=== PATIENT | male | born 1975 | race Caucasian/White ===

== ENCOUNTER 2020-10-14 06:07 | Inpatient (IN) ==
--- NOTE | 2020-09-28 09:00 | PAT Medication Instructions ---
Medication Instructions Date of Service September 28, 2020 Home Medications fluvoxamine 300 mg PO HS lisinopril 10 mg PO HS lithium carbonate 300 mg PO HS metformin 500 mg PO BID quetiapine [Seroquel] 300 mg PO HS rosuvastatin 1 dose PO HS zolpidem 5 mg PO HS DO NOT take the morning of surgery metformin 500 mg PO BID Take evening before surgery fluvoxamine 300 mg PO HS lisinopril 10 mg PO HS lithium carbonate 300 mg PO HS metformin 500 mg PO BID quetiapine [Seroquel] 300 mg PO HS rosuvastatin 1 dose PO HS zolpidem 5 mg PO HS Other Notes If you have any questions please call us at [phone] or [phone] or [phone] or [phone]
--- NOTE | 2020-09-29 08:45 | Anesthesiology Consultation ---
Date of Service September 29, 2020 Assessment & Plan (1) Encounter for pre-operative examination: - Per assessment on 09/28: Travel screen negative. No known COVID-19 positive contacts or current COVID-19 related symptoms. Patient's cousin did have a po sitive coworker 2 weeks ago- cousin had COVID testing due to contact and result came back negative. Surgeon arranging preop COVID testing. Awaiting results. - Check BSG AM DOS Chart Review Chart Review: Acceptable Risk for Surgery and Patient seen in Pre Admission Testing Teaching & Discussion Pre-Anesthesia Teaching/Discussion Notes: Instructed NPO after midnight before surgery,except medications with 15 cc of water. Medication instructions provided according to the PAT guidelines. History Surgery Operation Date: 10/14/20 12:55 Proposed Procedures p C6-C7 Anterior Cervical Discectomy and Fusion, C5 Corpectomy, Spinal Cord Monitoring - Jose J Leiva DO Height/Weight Height: 5 ft 10 in Weight: 116.7 kg Allergies Allergy/AdvReac Type Severity Reaction Status Date / Time divalproex sodium AdvReac rage Verified 09/26/20 12:20 [From Depakote] escitalopram [From Lexapro] AdvReac suicidal Verified 09/26/20 12:20 ideation ibuprofen AdvReac GI Bleed Verified 09/26/20 12:20 Medications Home Medications Medication Instructions Recorded Confirmed Last Taken fluvoxamine 300 mg PO HS 09/26/20 09/26/20 Unknown lisinopril 10 mg PO HS 09/26/20 09/26/20 Unknown lithium carbonate 300 mg PO HS 09/26/20 09/26/20 Unknown metformin 500 mg PO BID 09/26/20 09/26/20 Unknown quetiapine [Seroquel] 300 mg PO HS 09/26/20 09/26/20 Unknown rosuvastatin 1 dose PO HS 09/26/20 09/26/20 Unknown zolpidem 5 mg PO HS 09/26/20 09/26/20 Unknown Past Medical History Medical History Curvature of spine DM type 2 (diabetes mellitus, type 2) NIDDM History of gout HTN (hypertension) Hyperlipidemia OCD (obsessive compulsive disorder) Osteoarthritis Psychotic disorder with h/o delusions, hallucinations; states "well controlled" at present time PTSD (post-traumatic stress disorder) Sleep apnea does not tolerate CPAP Spinal stenosis Exercise / Class Metabolic Activity II 4-5 Yardwork/Stairs/Walk up hill Past Family History Family History Mother History of anesthesia reaction severe hypotension Past Surgical History Surgical History History of arthroscopy of right knee x3 History of foot surgery right History of repair of rotator cuff left History of vasectomy Past Anesthesia History Other (awareness with foot surgery) Mother: severe hypotension (baseline hypotension) History of PONV No Hx of PONV and No Hx of Motion Sickness STOP BANG Total 5 Social History Smoking Status: Former smoker Do You Dip or Chew Tobacco: No Smoking End Date: Quit 20 years ago Hx Alcohol Use: Yes alcohol intake frequency: holidays/special occasions only Hx Substance Use: No substance use type: does not use Review of Systems Patient denies chest pain, shortness of breath, dyspnea on exertion, joint pain, reflux, cough, wheezing, palpitations. Physical Exam Vital Signs VITALS BP 105/69 P 101 TEMP 98.4 SP02 96%RA RESP 16 PHYSICAL Full neck and c-spine range of motion. Full TMJ range of motion. TMD 3.5 finger breaths Mallampati Score 3 Dentition: poor dentition, several chipped/cracked (no new issues) Lungs: clear throughout to auscultation Cardiac: regular rate and rhythm, no murmurs noted Spine: normal Carotid arteries: negative bruit Extremities: no edema + thin joseph- advised to trim (patient will leave at anesthesiologist discretion DOS if further trimming/shaving needed) Testing Laboratory Results 09/29/20 09:10 09/29/20 09:10 PT 10.2 Seconds (9.0-12.0) 09/29/20 09:10 INR 1.0 (0.9-1.1) 09/29/20 09:10 APTT 29.1 Seconds (21.0-31.0) 09/29/20 09:10 Urine Color Yellow 09/29/20 09:10 Urine Appearance Clear (Clear) 09/29/20 09:10 Urine pH 5.0 (4.5-7.5) 09/29/20 09:10 Ur Specific [place] 1.022 (1.000-1.030) 09/29/20 09:10 Urine Protein Negative (Negative) 09/29/20 09:10 Urine Glucose (UA) Negative (Negative) 09/29/20 09:10 Urine Ketones Negative (Negative) 09/29/20 09:10 Urine Nitrite Negative (Negative) 09/29/20 09:10 Ur Leukocyte Esterase Negative (Negative) 09/29/20 09:10 Blood Type O Positive 09/29/20 09:10 Antibody Screen NEGATIVE 09/29/20 09:10 Electrocardiogram Date: 09/29/20 Findings: + NSR @ (93) Chest X-Ray Date: 09/29/20 FINDINGS: Lung volumes are normal. Lungs are clear. There is no pneumothorax or pleural effusion. Cardiac size is normal. Mediastinal contours are normal. There is no evidence for pulmonary edema. IMPRESSION: No acute cardiopulmonary findings.
[2020-09-29 10:42] LABS: Appearance Urine Clear (Clear); Basophils % (auto) 1.5 %; Bilirubin Urine Negative (Negative); Blood Urine Negative (Negative); Color Urine Yellow; Eosinophils # (auto) 0.35 K/uL (0-0.5); Eosinophils % (auto) 5.1 %; Glucose Urine UA Negative (Negative); Hematocrit (blood only) 40.1 % (42-52); Hemoglobin 12.9 g/dL (14.0-18.0); Immature Granulocytes # (auto) 0.02 K/uL (0.00-0.02); Immature Granulocytes % (auto) 0.3 %; Ketones Urine Negative (Negative); Leukocyte Esterase Urine Negative (Negative); Lymphocytes # (auto) 2.82 K/uL (1.2-3.4); Lymphocytes % (auto) 40.9 %; Mean Corpuscular Hgb Conc 32.2 g/dL (32-36); Mean Corpuscular Volume 84.1 fL (80-100); Mean Platelet Volume 11.8 fL (7.4-10.4); Monocytes # (auto) 0.49 K/uL (0.11-0.59); Monocytes % (auto) 7.1 %; Neutrophils # (auto) 3.11 K/uL (1.4-6.5); Neutrophils % (auto) 45.1 %; Nitrite Urine Negative (Negative); Platelet Count 229 K/uL (130-400); Protein Urine Negative (Negative); Red Blood Count 4.77 M/uL (4.7-6.1); Specific Gravity Urine 1.022 (1.000-1.030); Urobilinogen Urine Negative (Negative); White Blood Count 6.89 K/uL (4.8-10.8)
--- NOTE | 2020-09-29 10:47 | XRay Report ---
XR chest Pre-admission PA/Lat CLINICAL HISTORY: Preoperative evaluation. COMPARISON STUDY: No previous studies for comparison. FINDINGS: Lung volumes are normal. Lungs are clear. There is no pneumothorax or pleural effusion. Car diac size is normal. Mediastinal contours are normal. There is no evidence for pulmonary edema. IMPRESSION: No acute cardiopulmonary findings. ACT 112: Negative or not required by law. Electronically signed by: Terrell Goldsmith M.D. 09/29/2020 10:45 AM
[2020-09-29 10:52] LABS: BUN Creatinine Ratio 13.2 (10-20); Creatinine Clr Calc Pharmacy 99.3 ml/min; Est GFR (African American) 84.4; Est GFR (Non-African American) 72.8; Potassium 4.2 mmol/L (3.5-5.1)
[2020-09-29 10:53] LABS: Partial Thromboplastin Time 29.1 Seconds (21.0-31.0); Prothrombin Time 10.2 Seconds (9.0-12.0)
--- NOTE | 2020-09-29 16:46 | Electrocardiogram Report ---
Test Reason : Blood Pressure : / mmHG Vent. Rate : 093 BPM Atrial Rate : 093 BPM P-R Int : 168 ms QRS Dur : 094 ms QT Int : 360 ms P-R-T Axes : 055 063 061 degrees QTc Int : 447 ms Normal sinus rhythm Normal ECG No previous ECGs available Confirmed by Yuri Cruz ([id number]) on 09/29/2020 4:46:06 PM Referred By: Jose J Leiva Confirmed By:Jarrett Cruz
[~2020-10-14 06:07] MED LIST: ACETAMINOPHEN 500 MG TAB PO SCH; CeleBREX 200 MG CAP PO SCH; GABAPENTIN 900 MG DOSE PO SCH; LR 15ML/HR IV SCH; ceFAZolin 2000MG 2,000 MG/15 ML SYR IV SCH
[2020-10-14] MEDS ORDERED: REMIFENTANIL HCL 1 MG VIAL ONE (06:35)
[2020-10-14] MEDS ORDERED: PROPOFOL IV EMULSION 10 MG/ML 100 ML VIAL IV ONE (06:36)
[2020-10-14] MEDS ORDERED: HYDROmorphone INJ 2 MG/ML SYR/VIAL ONE (07:05)
[2020-10-14] MEDS ORDERED: MIDAZOLAM HCL 1 MG/ML 2ML VIAL ONE (07:05)
[2020-10-14] MEDS ORDERED: PROPOFOL IV EMULSION 10 MG/ML 20 ML VIAL IV ONE (07:10)
[2020-10-14] MEDS ORDERED: ONDANSETRON INJ 2 MG/ML 2 ML VIAL ONE (07:10)
[2020-10-14] MEDS ORDERED: SUCCINYLCHOLINE CHLORIDE 20 MG/ML 10 ML VIAL IV ONE (07:10)
[2020-10-14] MEDS ORDERED: LIDOCAINE HCL 2% 2 ML VIAL/AMP(20MG/ML) INFIL ONE (07:10)
[2020-10-14] MEDS ORDERED: DEXAMETHASONE SOD INJ 4 MG/ML VIAL ONE (07:10)
[2020-10-14] MEDS ORDERED: BACITRACIN INJ 50,000 UNIT VIAL ONE (07:11)
--- NOTE | 2020-10-14 07:21 | History & Physical Bridge Note ---
Date of Service October 14, 2020 History & Physical Bridge Note I have examined the patient, reviewed the History & Physical and in the interval since the performance of the History & Physical I have noted the following changes of clinical significance: no changes noted
--- NOTE | 2020-10-14 07:21 | History & Physical Report ---
Date of Service October 14, 2020 Assessment & Plan (1) Myelopathy concurrent with and due to spinal stenosis of cervical region: Admission and Anticipated Discharge Date Admission Date: C6-C7 anterior cervical discectomy and fusion, C5 corpectomy History of Present Illness Chief Complaint: Neck and arm pain Primary Care Provider: Yamini Mcarthur This is a 45-year-old milligrams with chronic persistent neck and arm symptoms after failing course of nonoperative care is here for surgical invention. Allergies Allergy/AdvReac Type Severity Reaction Status Date / Time divalproex sodium AdvReac rage Verified 10/14/20 06:22 [From Depakote] escitalopram [From Lexapro] AdvReac suicidal Verified 10/14/20 06:22 ideation ibuprofen AdvReac GI Bleed Verified 10/14/20 06:22 Home Medications Medication Instructions Recorded Confirmed Type fluvoxamine 300 mg PO HS 09/26/20 09/26/20 History lisinopril 10 mg PO HS 09/26/20 10/14/20 History lithium carbonate 300 mg PO HS 09/26/20 09/26/20 History metformin 500 mg PO BID 09/26/20 10/14/20 History quetiapine [Seroquel] 300 mg PO HS 09/26/20 09/26/20 History rosuvastatin 1 dose PO HS 09/26/20 09/26/20 History zolpidem 5 mg PO HS 09/26/20 09/26/20 History Past Med/Surg History Medical History Curvature of spine DM type 2 (diabetes mellitus, type 2) NIDDM History of gout HTN (hypertension) Hyperlipidemia OCD (obsessive compulsive disorder) Osteoarthritis Psychotic disorder with h/o delusions, hallucinations; states "well controlled" at present time PTSD (post-traumatic stress disorder) Sleep apnea does not tolerate CPAP Spinal stenosis Surgical History History of arthroscopy of right knee x3 History of foot surgery right History of repair of rotator cuff left History of vasectomy Family History Mother History of anesthesia reaction severe hypotension Social History Smoking Status: Former smoker Smoking End Date: Quit 20 years ago; Second Hand Exposure: Yes (as a child); Do You Dip or Chew Tobacco: No; Tobacco Cessation Education Requested by Patient: No Hx Alcohol Use: Yes Hx Substance Use: No Preferred Language: Maltese Communication Ability: Effective Trades Helper Required: No Beliefs That Will Affect Care: None Current Living Situation: Family Current Living Situation Comment: lives with mom and son Feels Safe at Home: Yes Safety Concerns: Feels Safe At This Time Assistive Devices: None Physical Exam Physical Exam: Patient's alert and oriented Heart regular rate and rhythm Lungs clear to auscultation Results & Data ([facility]) Vital Signs (Past 12 Hours) Vital Signs Temp Pulse Resp BP Pulse Ox 10/14/20 06:37 37.4 C 93 H 16 122/76 95
[2020-10-14] MEDS ORDERED: ePHEDrine sulfate 50 MG/ML AMP IV PRN (07:25)
[2020-10-14] MEDS ORDERED: ONDANSETRON INJ 2 MG/ML 2 ML VIAL IV PRN ×2 (07:25→12:07)
[2020-10-14] MEDS ORDERED: HYDROmorphone INJ 1 MG/ML SYRINGE IV PRN ×2 (07:25→12:07)
[2020-10-14] MEDS ORDERED: ATROPINE SULFATE 0.1 MG/ML 10ML SYR IV PRN (07:25)
[2020-10-14] MEDS ORDERED: PHENYLEPHRINE 100MCG/ML 5ML SYR ONE (08:08)
[2020-10-14] MEDS ORDERED: ROCURONIUM BROMIDE 10 MG/ML 5 ML VIAL IV ONE (08:08)
[2020-10-14] MEDS ORDERED: ePHEDrine sulfate 50 MG/ML SYR ONE (08:21)
[2020-10-14] MEDS ORDERED: NEOSTIGMINE METHYLSULFATE 1 MG/ML 10ML VIAL ONE (08:50)
[2020-10-14] MEDS ORDERED: GLYCOPYRROLATE 0.2 MG/ML VIAL ONE (08:50)
[2020-10-14] MEDS ORDERED: FLOSEAL HEMOSTATIC MATRIX 10ML TOP ONE (09:42)
--- NOTE | 2020-10-14 09:58 | Operative Report ---
Post Operative Report Pre & Post Diagnosis Operation Date: 10/14/20 07:45 Pre-Op Diagnosis: Spinal Stenosis, Cervical Region Post-Op Diagnosis: Spinal Stenosis, Cervical Region I identified the patient and participated in the time-out.: No Procedure Operation Date: 10/14/20 07:45 Actual Procedures #1 anterior cervical corpectomy with bilateral foraminotomies C5. #2 anterior cervical discectomy with bilateral foraminotomies C6-C7. #3 anterior cervical arthrodesis C4-C6 and C6-C7. #4 placement of 25 mm peek cage at C4-C6 and 8 mm at C6-C7. #5 placement locally harvested morselized autograft combined with DBM and interbody cages. #6 placement of lares plate and screws across C4-C7. Surgeon Jose J Leiva, DO Medical Affairs Leader Shanda Hu Estimated Blood Loss 10 Findings See Below The patient is 5 foot 10 inches tall weighing over 113 kg with a BMI in excess of 36. The patient's body habitus did contribute to his significant technical difficulty requiring our deepest retractors in order to expose and perform his procedure. This at least 50% increase to the operative time. Specimens None Indications This is a 45-year-old male presents with above-mentioned diagnosis after failing course of nonoperative care is here for the above-mentioned procedure. Description of Procedure Patient met with identified informed consent obtained. Patient was then taken to the operative suite underwent an patient placed in spine position just table head [place] head ordered. All bony prominences well-padded eyes inspected to ensure no external pressure placed upon the. This point the anterior cervical spine was prepped and draped in a sterile fashion. With the assistance of fluoroscopy identified the C5-C6 level and a transverse incision was placed along the right anterior aspect of the cervical spine overlying this region. Sharp dissection with the assistance of bipolar electrocautery was performed down to expose the anterior cervical spine from C4-C7. Self-retaining retractors placed. Then performed a complete discectomy of C4-5 out to the uncovertebral joints bilaterally followed by C5-C6. [place] distraction pins were then placed in C4 and C6 to distract across the C5 vertebral body. A complete corpectomy was then performed including removal of all posterior annular fibers longitudinal ligament bilateral foraminotomies. Endplates were then burred to subcortical being bone and a 25 mm peek cage filled with local autograft and DBM tapped in position. I then proceeded to see 6 C7. Again complete discectomy performed out to the uncovertebral's bilaterally. [place] distraction pins again utilized. Removed all posterior annular fibers longitudinal ligament bilateral foraminotomies performed. Endplates then burred to subcortically bone and a 8 mm peek cage filled with local autograft and DBM tapped in position. Distracting apparatus was removed all anterior osteophytes produced with cortical surface and a 5 complete screws applied with the assistance of fluoroscopy. Incision was then copiously irrigated explored to ensure no damage to surrounding structures remaining bleeding. 10 round GRECIA drain inserted. The incision was then closed with 2 Vicryl in a fashion of 4 Monocryl for final skin closure. Steri-Strip sterile dressings placed. Patient will continue PACU stable condition. Please note spinal cord monitoring was utilized that the procedure no changes noted. Lastly Franck record was present throughout the entire surgery involved the patient positioning complex portions of the surgery and final skin closure. I attest to the content of the Intraoperative Record and any orders documented therein. Any exceptions are noted below.
[2020-10-14] MEDS: fentaNYL citrate 100 MCG/2 ML VIAL IV PRN ×3 (10:22→10:32)
--- NOTE | 2020-10-14 10:35 | Fluoroscopy Report ---
FL cervical 2-3V CLINICAL HISTORY: ACDF C6-C7 AND CORPECTOMY C5 COMPARISON STUDY: None. FLUOROSCOPY TIME: 11 seconds. FINDINGS: 3 fluoroscopic spot images of the cervical spine demonstrate anterior cervical discectomy a nd fusion from C4 through C7 with C5 corpectomy and bone graft. IMPRESSION: Fluoroscopy provided for C4-C7 ACDF. ACT 112: Negative or not required by law. Electronically signed by: Abdiel Rocha M.D. 10/14/2020 10:33 AM
[2020-10-14] MEDS ORDERED: FAMOTIDINE 20 MG TAB PO PRN (12:07)
[2020-10-14] MEDS ORDERED: LORazepam 0.5 MG TAB PO PRN (12:07)
[2020-10-14] MEDS ORDERED: ACETAMINOPHEN 1,000 MG/100 ML VIAL IV PRN (12:07)
[2020-10-14] MEDS ORDERED: DO NOT ADMINISTER PNEUMOCOCCAL VACCINE PRN (12:07)
[2020-10-14] MEDS ORDERED: PROMETHAZINE HCL 12.5 MG in SODIUM CHLORIDE 0.9% 50 ML IV PRN (12:07)
[2020-10-14] MEDS ORDERED: RACEPINEPHRINE 2.25% NEBU SOLN 0.5 ML VIAL INH PRN (12:07)
[2020-10-14] MEDS ORDERED: diphenhydrAMINE Capsule 25 MG CAP PO PRN (12:07)
[2020-10-14] MEDS ORDERED: ALUMINUM/MAGNESIUM SUSP 30 ML UDC PO PRN (12:07)
[2020-10-14] MEDS ORDERED: traMADol HCL 50 MG TABLET PO PRN (12:07)
[2020-10-14] MEDS ORDERED: DO NOT ADMINISTER FLU VACCINE PRN (12:07)
[2020-10-14] MEDS ORDERED: hydrOXYzine HCl 25 MG TAB PO PRN (12:07)
[2020-10-14] MEDS ORDERED: HYDROmorphone INJ 0.5 MG/0.5 ML SYR IV PRN (12:07)
[2020-10-14] MEDS ORDERED: NALOXONE HCL 0.4 MG/1 ML VIAL/CARP IV PRN (12:07)
[2020-10-14] MEDS ORDERED: DEXAMETHASONE SOD PHOSPHATE 8 MG in SYRINGE 0 ML IV PRN (12:07)
[2020-10-14] MEDS ORDERED: SOD PHOSPHATE/SOD BIPHOSPHATE ENEMA 132 ML BTL PR PRN (12:07)
[2020-10-14] MEDS ORDERED: METOCLOPRAMIDE HCL INJ 5 MG/ML 2 ML VIAL IV PRN (12:07)
[2020-10-14] MEDS ORDERED: ONDANSETRON 4 MG OD TAB PO PRN (12:07)
[2020-10-14] MEDS ORDERED: LORazepam 0.5 MG/1 ML VIAL IV PRN (12:07)
[2020-10-14] MEDS ORDERED: ACETAMINOPHEN 500 MG TAB PO PRN (12:07)
[2020-10-14] MEDS ORDERED: MAGNESIUM HYDROXIDE SUSP 30 ML UDC PO PRN (12:07)
[2020-10-14] MEDS ORDERED: PHARMACY GLYCEMIC MGMT CONSULT PRN (12:15)
[2020-10-14] MEDS ORDERED: GLUCAGON FOR INJ 1 MG VIAL IM PRN (12:30)
[2020-10-14] MEDS ORDERED: GLUCOSE 40% GEL 15 GM TUBE PO PRN (12:30)
[2020-10-14] MEDS ORDERED: DEXTROSE 50% 50 ML SYRINGE IV PRN (12:30)
[2020-10-14] MEDS ORDERED: NovoLIN-N (NPH) PER UNIT CHARGE SQ ONE (12:30)
[2020-10-14] MEDS ORDERED: GLUCOSE 10 TABS/TUBE PO PRN (12:30)
[2020-10-14] MEDS ORDERED: CARBOHYDRATES FOR HYPOGLYCEMIA PO PRN (12:30)
[2020-10-14] MEDS: SODIUM CHLORIDE 0.9% 1000ML 1,000 ML IV SCH ×2 (13:04→19:50)
[2020-10-14] MEDS: INSULIN ASPART 100 UNITS/ML 3 ML PEN SC SCH ×3 (13:07→21:13)
--- NOTE | 2020-10-14 13:14 | Pharmacy Report ---
Glycemic Control Consultation - Date of Service October 14, 2020 - Scope Scope: Glycemic Pharmacist consulted for glycemic control and to write orders per [facility] inpatient glycemic control protocol. - Objective Weight: 113.7 kg Accuchecks BSG (last 24hrs): 10/14/20 10/14/20 10/14/20 06:24 10:20 12:17 POC Glucose 113 H 127 H 142 H - Recent Pertinent Medications Outpatient Anti-diabetic Regimen: * metformin 1 gm PO BID Risk Factors for Insulin Resistance: * Steroids: dexamethasone 8 mg IV x 1 intraop * Recent Surgery: POD 0 for spinal surgery * Diet: clear liquid diet - Assessment & Plan Assessment & Plan: ASSESSMENT: * Mr Qeusada is a 45 y/o M with presents with T2DM on one oral medication for spinal surgery. Patient received dexamethasone 8 mg IV intraop. * Give NPH 35 units (0.4 units/kg of adjusted body weight) x 1 for steroid hyperglycemia. * Start weight-based stress of 3 (adjusted body weight) for Novolog. Overnight checks added. HbA1C ordered. * Pt is maintained on oral antidiabetic agents as an outpatient * Oral agents are not recommended for inpatient use d/t drug interactions, changing PO intake, and difficulty titrating for acute hyper/hypoglycemia. ADA recommends re-initiating outpatient oral agents 1-2 days prior to discharge if/when appropriate if they were held on admission. * Hold metformin for now. PLAN FOR INPATIENT GLYCEMIC CONTROL: * Holding outpatient oral diabetes medications * Basal insulin * 35 units SQ x 1 * Bolus insulin * NovoLog per scale ACHS or Q6hrs while NPO * Goal Range: Low 110 mg/dL - High 140 mg/dL * Correction Factor: 20 mg/dL/unit * Nutritional / Prandial insulin per carb ratio of 1 unit per 6 grams CHO consumed * Please note that the plan above was derived based on current level of insulin resistance and hospital stress. These recommendations are appropriate for inpatient admission only. Plan of care upon discharge will need to be reassessed to avoid potential outpatient hypo/hyperglycemia. Thank you.
--- NOTE | 2020-10-14 15:34 | Anesthesiology Progress Note ---
Date of Service October 14, 2020 Anesthesia Post Procedure Vital Signs Vital Signs: Temp Pulse Pulse Pulse Resp BP Pulse Ox 10/14/20 14:52 36.5 C 101 H 16 111/71 98 10/14/20 14:00 36.6 C 101 H 16 102/69 95 10/14/20 13:44 115 H 16 98 10/14/20 12:55 36.8 C 104 H 14 121/73 98 10/14/20 12:25 36.9 C 101 H 16 126/88 96 10/14/20 11:55 36.8 C 95 H 14 111/66 95 10/14/20 11:40 103 H 12 113/69 95 10/14/20 11:25 99 H 13 117/78 98 10/14/20 11:15 36.6 C 104 H 13 109/73 97 10/14/20 11:05 105 H 15 116/75 97 10/14/20 10:55 99 H 19 123/75 96 10/14/20 10:45 97 H 17 112/65 98 10/14/20 10:35 95 H 21 136/82 99 10/14/20 10:25 93 H 14 125/83 99 10/14/20 10:17 36 C L 94 H 16 125/94 99 10/14/20 06:37 37.4 C 93 H 16 122/76 95 Pain Intensity Neck: Pain Intensity: 3 Transfer of Care Handoff Completed per policy Notes Mental Status: alert / awake / arousable and participated in evaluation Patient Amnestic to Procedure: Yes Nausea / Vomiting: adequately controlled Pain: adequately controlled Airway Patency, RR, SpO2: stable & adequate BP & HR: stable & adequate Hydration State: stable & adequate Anesthetic Complications: no major complications apparent and Pt Satisfied with anesthetic care
[2020-10-14] MEDS: ceFAZolin 2000MG 2,000 MG/15 ML SYR IV SCH ×2 (16:58→23:56)
[2020-10-14] MEDS ORDERED: ROSUVASTATIN CALCIUM 5 MG TAB PO SCH (21:00)
[2020-10-14] MEDS ORDERED: LITHIUM CARBONATE 300 MG TAB PO SCH (21:00)
[2020-10-14] MEDS ORDERED: lisinopril 10 MG TAB PO SCH (21:00)
[2020-10-14] MEDS ORDERED: fluvoxaMINE MALEATE 50 MG TAB PO SCH (21:00)
[2020-10-14] MEDS ORDERED: QUEtiapine FUMARATE 300 MG TABLET PO SCH (21:00)
[2020-10-14] MEDS ORDERED: DOCUSATE SODIUM/SENNA 50/8.6MG TAB PO SCH (21:00)
[2020-10-14] MEDS ORDERED: ZOLPIDEM TARTRATE 5 MG TAB PO SCH (21:00)
[2020-10-14] MEDS: oxyCODONE HCL IR 5 MG TAB (IMMEDIATE RELEASE) PO PRN (22:08)
[2020-10-15] MEDS: SODIUM CHLORIDE 0.9% 1000ML 1,000 ML IV SCH (02:35)
[2020-10-15] MEDS: INSULIN ASPART 100 UNITS/ML 3 ML PEN SC SCH ×3 (04:25→08:35)
[2020-10-15] MEDS ORDERED: NovoLIN-N (NPH) PER UNIT CHARGE SQ ONE ×2 (08:00→10:00)
--- NOTE | 2020-10-15 09:12 | Pharmacy Report ---
Glycemic Control Progress Note - Date of Service October 15, 2020 - Scope Glycemic Pharmacist consulted for glycemic control to write orders per [facility] inpatient glycemic control protocol. - Objective Accuchecks BSG(last 24 hours):: 10/14/20 10/14/20 10/14/20 06:24 10:20 12:17 POC Glucose 113 H 127 H 142 H 10/14/20 10/14/20 10/14/20 17:09 20:30 23:52 POC Glucose 149 H 126 H 107 H 10/15/20 10/15/20 04:22 08:13 POC Glucose 113 H 107 H - Recent Pertinent Medications The patient is currently receiving: * Basal insulin: NPH 35 units SQ x 1 * Correctional Insulin: Novolog Correction per scale ACHS Goal Range: Low 110 mg/dL - High 140 mg/dL Correction Factor: 20 mg/dL/unit * Prandial insulin: Per carb ratio of 1 unit per 6 grams CHO consumed * Oral Agents: - Outpatient Anti-Diabetic Meds metformin 500 mg BIDM - Assessment & Plan ASSESSMENT: * See progress note from 10/14/20 for more background info, in short: * Pt receiving SQ basal bolus insulin regimen for hyperglycemia secondary to baseline DM (outpatient regimen on hold). Patient is POD 1 for spinal surgery. She received dexamethasone 8 mg IV intraop. * Patient is currently receiving an average of 43 units of insulin per day * 35 units of basal insulin * 8 units of prandial/correctional insulin * BSGs ranging 107 - 149 mg/dl over the past 24hrs * Changes needed to insulin regimen: * AM Fasting BSG = 107 mg/dl. This is in goal range for patient based on inpatient targets and co-morbidities. Since the patient received IV dexamethasone intraop, will give one more additional dose of NPH 15 units to cover steroid hyperglycemia today. * Post-prandial BSGs are in range therefore no changes needed to CF/CR. Will need loosened tomorrow. * Total daily dose = <30 units. Expect this to decrease as steroid effects wear off. * Additional notes / comments: Patient's metformin to be resumed tomorrow PLAN FOR INPATIENT GLYCEMIC CONTROL: * NPH 15 units SQ x 1 * Continuing correction factor of 20 mg/dl/unit * Continuing carb ratio to 1 unit per 6 grams CHO consumed * Continuing goal range to Low 110 mg/dL - High 140 mg/dL RECOMMENDATIONS FOR DISCHARGE: * Patient's HbA1C is pending currently. Recommend continuing home regimen at this point as blood sugars have been well controlled. Thank you.
--- NOTE | 2020-10-15 09:28 | Discharge Summary ---
Date of Service October 15, 2020 Admission HPI Per Admitting Provider This is a 45-year-old milligrams with chronic persistent neck and arm symptoms after failing course of nonoperative care is here for surgical invention. Principal Diagnosis Cervical spinal stenosis with myeloradiculopathy Discharge Data Allergies Allergy/AdvReac Type Severity Reaction Status Date / Time divalproex sodium AdvReac rage Verified 10/14/20 06:22 [From Depakote] escitalopram [From Lexapro] AdvReac suicidal Verified 10/14/20 06:22 ideation ibuprofen AdvReac GI Bleed Verified 10/14/20 06:22 Procedures Performed Operation Date: 10/14/20 07:45 Actual Procedures p C6-C7 Anterior Cervical Discectomy and Fusion, C5 Corpectomy, Spinal Cord Monitoring - Jose J Leiva DO Ordered Studies 10/14/20 07:45 FL cervical 2-3V Routine FL fluoroscopy <1hr Routine Hospital Course (1) Myelopathy concurrent with and due to spinal stenosis of cervical region: Patient went anterior cervical corpectomy and fusion tolerated this well was taken to the orthopedic for postop labor postop day 1 he was swallowing well no hoarseness arm symptoms markedly improved. Excellent strength testing. GRECIA drain decreasing probably. Subsequently discharged home. Discharge orders and instructions from the chart for further review. Total Time Total Time Spent Total Time Spent (In Minutes): 20 minutes Discharge Plan Discharge Items Patient Disposition: Home - Self-Care Reason For Visit: Spinal Stenosis, Cervical Region Discharge Diagnosis: Cervical spinal stenosis with radiculopathy Activity: As commented below Non-emergency contact: Primary Care Provider Call non-emergency contact if: you have any medication questions Follow-up/Referrals: Yamini Mcarthur PA-C [Primary Care Provider] - Diet: Regular Addtl Attending Provider Instructions: ACTIVITY RECOMMENDATIONS: SELF CARE INSTRUCTIONS AFTER CERVICAL FUSIONS 1. No smoking. Smoking drastically decreases the chance of a solid fusion. 2. No bending, lifting more than 5 pounds, or twisting (roll like a log when turning in bed). 3. You may shower 3 days after surgery. Thoroughly dry wound. Do not soak in the tub. 4. Cervical collar: Must be worn at all times including sleeping. You may remove the brace only to bath, eat and if you are sitting in a recliner. 5. Please walk as much as you can for exercise. Gradually increase the distance that you walk as your endurance increases. SPECIAL CARE INSTRUCTIONS: VERY IMPORTANT TO READ AND REVIEW A. Do not take any anti-inflammatory medications (i.e. Indocin, Advil, Aspirin, Naprosyn, Aleve, Motrin, etc.) as these may inhibit the chance of a solid fusion. Tylenol is okay to take. B. Your surgical incision has been closed with a cosmetic suture under the skin that will dissolve in about 6 weeks. In 14 days, you can use a pair of cl gloria scissors and cut the suture that is left outside of the skin at the ends of your incision. C. Complications are uncommon, but please contact us if you have any signs or symptoms of: 1. wound infection (fever higher than 102.5 degrees F, redness, separation of wound, drainage, or increasing pain from the incision) 2. blood clots in legs (pain, swelling, redness and warmth in legs) 3. urinary tract infection (fever higher than 102.5 degrees, burning upon urination or increased frequency of urination) 4. nerve problems (inability to walk on your toes or heels, numbness, loss of bowel or bladder control) 5. any other symptoms that concern you. D. Please call the office at if you have any concerns or questions about your operation or recovery. MANAGING PAIN AFTER SPINAL SURGERY 1. Narcotic medication is intended for short-term use and will be provided for surgical pain. Surgical pain usually lasts for a period of 4-6 weeks. Narcotic medication includes Percocet, Vicodin, Darvocet, Tylenol #3 or Lortab. 2. Longer-term pain is more appropriately treated with non-narcotic medication such as Tylenol ES. 3. Muscle spasm is not appropriately treated with narcotics. Muscle relaxers such as Soma, Flexeril or Skelaxin can be used along with Tylenol ES. 4. Remember that we all live with some "aches and pains". This is not unusual or uncommon after an injury or as we get older. 5. We will provide appropriate medication within the normal guidelines of their prescribed use. We will also be very cautious and aware of potential abuse and extended duration of patients' medication needs. 6. Please allow 2-3 days to process refills. Prescriptions will not be mailed but must be picked up at the office. FOLLOW UP VISIT: Keep your scheduled follow-up appointment. Any questions, please call the office at . Pending Studies at Discharge: No Stand-Alone Forms: My [facility], Smoking Cessation Medications and DC Order Prescriptions: New tramadol 50 mg tablet 50 mg PO Q6H PRN (Reason: pain, moderate) Qty: 20 RF: 0 oxycodone 5 mg tablet 5 mg PO Q6H PRN (Reason: pain, severe) Qty: 15 RF: 0 Continued metformin 500 mg Tablet 500 mg PO BID RF: 0 quetiapine [Seroquel] 300 mg Tablet 300 mg PO HS RF: 0 lithium carbonate 150 mg Capsule 300 mg PO HS RF: 0 lisinopril 10 mg Tablet 10 mg PO HS RF: 0 zolpidem 5 mg Tablet 5 mg PO HS RF: 0 fluvoxamine 100 mg Tablet 300 mg PO HS RF: 0 rosuvastatin 1 dose PO HS RF: 0 Discharge Orders: Discharge Order (Routine); Ordered 10/15/20 Ordered By: Jose J Leiva Admission Data Admit Date/Time: 10/14/20 10:47 Attending Provider: Jose J Leiva Admit Provider: Jose J Leiva Primary Care Provider: Yamini Mcarthur
[2020-10-15] MEDS ORDERED: DEXAMETHASONE SOD PHOSPHATE 8 MG in SYRINGE 0 ML IV STA (09:29)
[2020-10-15 09:31] LABS: Estimated Average Glucose 137 mg/dl; Hemoglobin A1C 6.4 % (4.5-5.6)
[2020-10-15] MEDS ORDERED: POLYETHYLENE (MIRALAX) 17 GM PACK PO SCH (09:59)
[2020-10-15] MEDS: oxyCODONE HCL IR 5 MG TAB (IMMEDIATE RELEASE) PO PRN (11:33)
[2020-10-16] MEDS ORDERED: metFORMIN HCL 500 MG TAB PO SCH (08:00)
[2020-10-16] MEDS ORDERED: bisacodyL 10 MG SUPP PR PRN (09:59)
== END 2020-10-15 11:59 | disposition home or self-care (01) | DRG 472 ==
LOC: ASU 06:07 → 3E 10:47